=== PATIENT | female | born 1975 | race Two or more races ===

== ENCOUNTER 2017-12-05 11:14 | Emergency (ER) | payer OTHER ==
[~2017-12-05] VITALS: Ht 162.6 cm; Wt 71.2 kg
[2017-12-05 11:28] VITALS: BP 130/86
[2017-12-05 11:41] LABS: APPEARANCE,URINE CLEAR; BILIRUBIN, URINE NEGATIVE (NEGATIVE); GLUCOSE, URINE (UA) NEGATIVE (NEGATIVE); KETONES,URINE 2+ (NEGATIVE); LEUKOCYTE ESTERASE ,URINE 1+ (NEGATIVE); NITRITE,URINE NEGATIVE (NEGATIVE); PH,URINE 5 (4.5-8.0); PROTEIN,URINE 2+ (NEGATIVE); UROBILINOGEN,URINE NORMAL MG/DL (0.0-1.0)
[2017-12-05 12:00] LABS: COLOR,URINE YELLOW
[2017-12-05] MEDS ORDERED: ACETAMINOPHEN-1 EAC1 ORAL (12:41)
[2017-12-05] MEDS ORDERED: IBUPROFEN600 MG ORAL (12:41)
[2017-12-05] MEDS ORDERED: METROGEL-VAGINA70 G1 VAGIN (12:44)
[2017-12-05] MEDS ORDERED: FLUCONAZOLE100 MG ORAL (12:44)
[2017-12-05] MEDS ORDERED: METRONIDAZOLE500 MG ORAL (12:44)
[2017-12-05] MEDS: Ketorolac 60mg Inj IM ONE ×2 (12:56→13:03)
[2017-12-05 13:00] VITALS: BP 133/80
--- NOTE | 2017-12-05 13:02 | Emergency Room Report ---
History of Present Illness General Chief Complaint: Abdominal Pain Source: Patient Present Illness HPI Patient presents with complaints of vaginal discharge or foul smell Denies any recent sexual contact and eyes any chest pain or shortness of breath discomfort also involves the lower abdominal area suprapubic Denies any vomiting or diarrhea Denies any recent trauma denies any focal weakness After initial evaluation there is a palpable mass over the suprapubic region, after this finding patient now reports that she has had that for over one year she has had several ultrasounds, and reports that she is seeing a chef french in the next 7 days Allergies: Coded Allergies: No Known Allergies (Unverified , 12/05/17) Patient History Past Medical History: see triage record Pertinent Family History: none Last Menstrual Period: 11/22/17 Reviewed Nursing Documentation: PMH: Agreed; PSxH: Agreed Nursing Documentation-PMH Past Medical History: No Stated History Review of Systems All Other Systems: negative except mentioned in HPI Physical Exam Vital Signs Date Time Temp Pulse Resp B/P (MAP) Pulse Ox O2 Delivery O2 Flow Rate FiO2 12/05/17 11:19 97.7 76 18 130/86 100 Room Air 97.7 Sp02 EP Interpretation: reviewed, normal General Appearance: well appearing, no apparent distress Head: normocephalic, atraumatic Eyes: bilateral eye PERRL, bilateral eye EOMI ENT: hearing grossly normal, normal pharynx, TMs + canals normal, uvula midline Neck: full range of motion, supple, no meningismus, no bony tend Respiratory: lungs clear, normal breath sounds, no rhonchi, no respiratory distress, no retraction, no accessory muscle use Cardiovascular #1: normal peripheral pulses, regular rate, rhythm, no edema, no gallop, no JVD, no murmur Gastrointestinal: normal bowel sounds, non tender, soft, non-distended, no guarding, no hernia, no pulsatile mass, no rebound, mass - Palpable mass just over the suprapubic region, firm Genitourinary: other - Pelvic exam reveals patent canal, grayish discharge with foul smell, no other obvious lesions Musculoskeletal: normal inspection Neurologic: oriented x3, responsive, ambulance 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 III-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 nml as tested, motor strength/ tone normal, sensory intact Psychiatric: mood/affect normal Skin: normal color, no rash, warm/dry, palpation normal Lymphatic: normal inspection, no adenopathy Medical Decision Making Diagnostic Impression: Primary Impression: bacterial vaginitis Additional Impression: pelvic mass ER Course With the patient's history and examination, multiple differentials considered, including but not limited to , ectopic , ovarian torsion, gastritis, cholecystitis, pancreatitis, appendicitis Mid epigastric and upper abdominal area are nontender, I cannot localize the pain to the right lower quadrant my differential for appendicitis is low test is negative Patient has had multiple ultrasounds from her reports and has seen a mass in that region questionably a fibroid Patient requesting ultrasound today I did discuss that given the etiology and the presentation another ultrasound would likely not be beneficial patient has follow-up with specialty gynecology The bacterial vaginosis is treated And patient requires close outpatient follow-up Labs Test 12/05/17 11:30 Urine Color Yellow Urine Appearance Clear Urine pH 5 (4.5-8.0) Urine Specific [place] 1.025 (1.005-1.035) Urine Protein 2+ (NEGATIVE) Urine Glucose (UA) Negative (NEGATIVE) Urine Ketones 2+ (NEGATIVE) Urine Blood 3+ (NEGATIVE) Urine Nitrite Negative (NEGATIVE) Urine Bilirubin Negative (NEGATIVE) Urine Urobilinogen Normal MG/DL (0.0-1.0) Urine Leukocyte Esterase 1+ (NEGATIVE) Urine RBC 2-4 /HPF (0 - 2) Urine WBC 2-4 /HPF (0 - 2) Urine Squamous Epithelial Cells Many /LPF (NONE/OCC) Urine Bacteria Few /HPF (NONE) Urine Mucus Moderate /LPF (NONE/OCC) Urine HCG, Qualitative Negative (NEGATIVE) Last Vital Signs Date Time Temp Pulse Resp B/P (MAP) Pulse Ox O2 Delivery O2 Flow Rate FiO2 12/05/17 12:56 97.7 12/05/17 11:28 18 130/86 100 Room Air 12/05/17 11:19 76 Status: improved Disposition: HOME, SELF-CARE Condition: Improved Scripts Metronidazole* (FLAGYL*) 500 Mg Tablet 500 MG ORAL BID, #14 TAB Prov: Jeremy Ortiz DO 12/05/17 Fluconazole (FLUCONAZOLE) 100 Mg Tablet 100 MG ORAL DAILY, #3 TAB 0 Refills Prov: Jeremy Ortiz DO 12/05/17 Metronidazole* (METROGEL-VAGINAL*) 70 Gm Gel.w.appl 1 APPL VAGIN BEDTIME for 7 Days, GM Prov: Jeremy Ortiz DO 12/05/17 Acetaminophen With Codeine (T#3) (TYLENOL #3 TAB*) Y Tab 1 TAB ORAL Q8H PRN for For Pain, #10 TAB Prov: Jeremy Ortiz DO 12/05/17 Ibuprofen* (MOTRIN*) 600 Mg Tablet 600 MG ORAL Q8H PRN for For Pain, #20 TAB 0 Refills Prov: Jeremy Ortiz DO 12/05/17 Referrals: [facility]ERR[facility] (PCP) Patient Instructions: Bacterial Vaginosis, [id number], Abdominal Pain, Adult , Pelvic Mass Additional Instructions: As you have mentioned 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 You have had several ultrasounds in the recent past, repeat imaging in the emergency room was not required today. You have been provided with the discharge instructions notified to follow up with primary doctor in the next 2-3 days otherwise return to the er with any worsening symptoms. Please note that this report is being documented using DRAGON technology. This can lead to erroneous entry secondary to incorrect interpretation by the dictating instrument. Jeremy Ortiz DO Dec 05, 2017 13:02
== END 2017-12-05 13:00 | disposition home or self-care (01) ==
LOC: EMR 11:33
DX: R10.30 Lower abdominal pain, unspecified (principal); N76.0 Acute vaginitis; B96.89 Other specified bacterial agents as the cause of diseases classified elsewhere; R19.00 Intra-abdominal and pelvic swelling, mass and lump, unspecified site
CPT/HCPCS: 81003; 81025; 99283